=== PATIENT | female | born 1960 | race Caucasian/White ===

== ENCOUNTER 2023-06-08 13:06 | Outpatient (CLI) | payer BC | END 2023-06-08 13:07 | disposition home or self-care (01) | LOC: CSHMAMMO 13:06 | PROVIDERS: ATTEND Family Medicine | DX: Z12.31 Encounter for screening mammogram for malignant neoplasm of breast (principal); Z13.820 Encounter for screening for osteoporosis; N95.9 Unspecified menopausal and perimenopausal disorder; M85.851 Other specified disorders of bone density and structure, right thigh; M85.852 Other specified disorders of bone density and structure, left thigh | CPT/HCPCS: 77063; 77067; 77080 ==

== ENCOUNTER 2024-06-18 08:40 | Outpatient (CLI) | payer BC | END 2024-06-18 08:41 | disposition home or self-care (01) | LOC: CSHMAMMO 08:40 | PROVIDERS: ATTEND Family Medicine | DX: Z12.31 Encounter for screening mammogram for malignant neoplasm of breast (principal) | CPT/HCPCS: 77063; 77067 ==